=== PATIENT | male | born 1980 | race Caucasian/White ===

== ENCOUNTER 2022-10-23 18:48 | Emergency (ER) | payer SELFPAY ==
[~2022-10-23] VITALS: Ht 195.6 cm; Wt 150.0 kg
[2022-10-23 18:51] VITALS: BP 161/94
[2022-10-23] MEDS ORDERED: CEPH-558 PO (20:34)
== END 2022-10-23 20:53 | disposition home or self-care (01) ==
LOC: EMS 18:48
DX: L03.116 Cellulitis of left lower limb (principal); F17.210 Nicotine dependence, cigarettes, uncomplicated
CPT/HCPCS: 99283

== ENCOUNTER 2024-05-21 11:33 | Emergency (ER) | payer BC ==
[~2024-05-21] VITALS: Ht 195.6 cm; Wt 150.0 kg
[~2024-05-21 11:33] MED LIST: CEPH-558 PO
[2024-05-21 11:37] VITALS: TEMP 98.1
[2024-05-21] MEDS ORDERED: IBUP-1554 PO (14:02)
[2024-05-21] MEDS ORDERED: CEPH-558 PO (14:02)
[2024-05-21] MEDS ORDERED: CORTSUSP AD (14:02)
[2024-05-21] MEDS ORDERED: HYDR-4062 PO (14:02)
[2024-05-21] MEDS: IBUPROFEN 600 MG TABLET PO ONE (14:31)
[2024-05-21] MEDS: HYDROCODONE/ACETAMINOPHEN 5-325 MG TABLET PO ONE (14:31)
[2024-05-21 14:37] VITALS: BP 161/93; PULSE 82; RESP 18
== END 2024-05-21 14:44 | disposition home or self-care (01) ==
LOC: EMS 11:33
DX: H60.91 Unspecified otitis externa, right ear (principal); H60.11 Cellulitis of right external ear; F17.210 Nicotine dependence, cigarettes, uncomplicated
CPT/HCPCS: 82962; 99283

== ENCOUNTER 2025-01-14 19:36 | Emergency (ER) | payer BC ==
[~2025-01-14] VITALS: Ht 190.5 cm; Wt 163.6 kg
[~2025-01-14 19:36] MED LIST changes: +CORTSUSP AD; +HYDR-4062 PO; +IBUP-1554 PO
[2025-01-14 19:42] VITALS: TEMP 98.4
[2025-01-14] MEDS: METHOCARBAMOL 500 MG TABLET PO ONE (22:29)
[2025-01-14] MEDS: KETOROLAC TROMETHAMINE 60 MG/2 ML VIAL IM ONE (22:29)
[2025-01-14] MEDS: OxyCODONE HCL/ACETAMINOPHEN 5-325 MG TABLET PO ONE (22:29)
[2025-01-14 22:43] VITALS: BP 149/73; PULSE 89; RESP 16; O2SAT 97
[2025-01-14] MEDS ORDERED: IBUP-1492 PO (23:52)
[2025-01-14] MEDS ORDERED: PERCT PO (23:52)
[2025-01-14] MEDS ORDERED: METH-659 PO (23:52)
== END 2025-01-15 00:44 | disposition home or self-care (01) ==
LOC: EMS 19:37
DX: S39.012A Strain of muscle, fascia and tendon of lower back, initial encounter (principal); F17.210 Nicotine dependence, cigarettes, uncomplicated; X50.1XXA Overexertion from prolonged static or awkward postures, initial encounter; Y93.89 Activity, other specified; Y92.89 Other specified places as the place of occurrence of the external cause; Y99.8 Other external cause status
CPT/HCPCS: 99283; 72100; 96372; J1885